=== PATIENT | female | born 1990 | race Two or more races ===

== ENCOUNTER 2019-12-07 19:25 | Inpatient (IN) | payer SELFPAY ==
[~2019-12-07] VITALS: Ht 137.2 cm; Wt 51.6 kg
--- NOTE | 2019-12-07 20:39 | NUR ---
THIS IS A 28Y F THAT COMES IN TONIGHT FOR ABD PAIN IN ALL QUADS WORSE IN THE PERIUMB AREA, PT REPORTS PAIN STARTING YESTERDAY. PT STS SHE JUST STARTED BLEEDING TODAY. PT STS SHE DOES NOT KNOW IF IT HER NORMAL PERIOD OR IF IT IS DIFFERENT. PT DENIES N/V/D AND UNK WHEN HER LAST PERIOD WAS. PT EDUCATED ON NEED FOR URINE SAMPLE BUT STS SHE IS BLEEDING AT THIS TIME, PROVIDER TO BE UPDATED. AND DAUGHTER AT BEDSIDE AT THIS TIME. RUDY DIAZ
[2019-12-07 20:57] LABS: BASOPHILS # (AUTO) 0.04 x10^3/uL (0-0.1); BASOPHILS % (AUTO) 0 % (0-1); EOSINOPHILS # (AUTO) 0.04 x10^3/uL (0-0.4); EOSINOPHILS % (AUTO) 0 % (1-7); LYMPHOCYTES # (AUTO) 1.49 x10^3/uL (1-3.4); LYMPHOCYTES % (AUTO) 13 % (22-44); MD NO; MEAN CORPUSCULAR HEMOGLOBIN 24.7 pg (27.0-34.8); MEAN CORPUSCULAR HGB CONC 33.3 g/dL (32.4-35.8); MEAN PLATELET VOLUME 8.4 fL (7.4-10.4); MONOCYTES # (AUTO) 0.66 x10^3/uL (0.2-0.8); MONOCYTES % (AUTO) 6 % (2-9); NEUTROPHILS # (AUTO) 9.55 x10^3/uL (1.8-6.8); NEUTROPHILS % (AUTO) 81 % (42-75); PLATELET COUNT 404 x10^3/uL (130-400); RED BLOOD COUNT 4.14 x10^6/uL (3.82-5.3); RED CELL DISTRIBUTION WIDTH 15.8 % (9.6-15.2)
[2019-12-07] MEDS ORDERED: ONDANSETRON 2MG/ML, 2ML IVPush ONE (21:00)
[2019-12-07] MEDS ORDERED: SODIUM CHLORIDE 0.9% 1,000ML IVBOLUS ONE (21:00)
[2019-12-07] MEDS ORDERED: SODIUM CHLORIDE FLUSH 10ML SYR IVF ONE (21:00)
[2019-12-07] MEDS ORDERED: ONDANSETRON 2MG/ML, 2ML ONE (21:42)
[2019-12-07 21:46] LABS: ALANINE AMINOTRANSFERASE 61 U/L (12-78); ALBUMIN 3.1 g/dL (3.4-5.0); ANION GAP 10 mmol/L (5-15); CHLORIDE 105 mmol/L (98-107); CREATININE 0.71 mg/dL (0.55-1.02)
[2019-12-07 21:48] LABS: ALKALINE PHOSPHATASE 146 U/L (45-117); BILIRUBIN,TOTAL 0.5 mg/dL (0.2-1.0); TOTAL PROTEIN 7.9 g/dL (6.4-8.2)
--- NOTE | 2019-12-07 21:49 | NUR ---
PIV STARTED, FLUIDS INFUSING, PT MEDICATED PER MAR, STRAIGHT CATH PERFORMED PER ERP. URINE SENT TO LAB. PT RESTING NADN.
[2019-12-07 21:59] LABS: MICROSCOPIC INDICATED
[2019-12-07 22:11] LABS: CULTURE INDICATED? YES
--- NOTE | 2019-12-07 23:20 | NUR ---
REPORT TO PHYSICIAN OBSTETRICIAN. PT READY FOR TRANSPORT
[2019-12-07] MEDS ORDERED: EPINEPHRINE 1 MG/ML, 1ML ONE (23:31)
[2019-12-07] MEDS ORDERED: BUPIVACAINE/PF 0.25% ONE (23:31)
[2019-12-08] MEDS ORDERED: FENTANYL PF 100 MCG/2ML ONE (00:06)
[2019-12-08] MEDS ORDERED: PHENYLEPHRINE 10 MG/ML ONE (00:08)
[2019-12-08] MEDS ORDERED: DEXAMETHASONE 4 MG/ML, 1ML ONE (00:43)
[2019-12-08] MEDS ORDERED: GLYCOPYRROLATE 0.2MG/1ML, 5ML ONE (00:43)
[2019-12-08] MEDS ORDERED: ONDANSETRON 2MG/ML, 2ML ONE (00:43)
[2019-12-08] MEDS ORDERED: SUCCINYLCHOLINE 20 MG/ML, 10ML ONE (00:43)
[2019-12-08] MEDS ORDERED: PROPOFOL 10 MG/ML, 20ML ONE (00:43)
[2019-12-08] MEDS ORDERED: CEFAZOLIN 1,000 MG ONE (00:43)
[2019-12-08] MEDS ORDERED: NEOSTIGMINE 1 MG/ML, 10ML ONE (00:43)
[2019-12-08] MEDS ORDERED: ROCURONIUM 10MG/ML,5ML ONE (00:43)
[2019-12-08] MEDS ORDERED: BUPIVACAINE/PF-EPI 0.25% 1:200K INFIL ONE (00:44)
[2019-12-08] MEDS ORDERED: ACETAMINOPHEN 325 MG TABLET PO PRN (01:00)
[2019-12-08] MEDS ORDERED: OXYcodone 5 MG/5 ML ORAL.SOL UDC PO PRN (01:00)
[2019-12-08] MEDS ORDERED: ALBUTEROL/IPRATROPIUM 2.5MG/0.5MG, 3 ML NPPB PRN (01:00)
[2019-12-08] MEDS ORDERED: FENTANYL PF 100 MCG/2ML IV PRN (01:00)
[2019-12-08] MEDS ORDERED: HYDROmorphone 2 MG/ML, 1ML IVPush PRN (01:00)
[2019-12-08] MEDS ORDERED: PROMETHAZINE 25 MG/ML, 1ML IV PRN (01:00)
[2019-12-08] MEDS ORDERED: MEPERIDINE/PF 25MG/ML,1ML IVPush PRN (01:00)
[2019-12-08] MEDS ORDERED: MIDAZOLAM 1 MG/ML, 2ML IV PRN (01:00)
[2019-12-08] MEDS ORDERED: OXYcodone 5 MG/5 ML ORAL.SOL UDC ONE (01:25)
[2019-12-08] MEDS ORDERED: OXYcodone/APAP 5/325MG TABLET PO PRN (02:30)
[2019-12-08] MEDS ORDERED: IBUPROFEN 600 MG TABLET PO PRN (02:30)
[2019-12-08] MEDS ORDERED: HYDROmorphone 1 MG/ML, 1ML INJ IV PRN (02:30)
[2019-12-08] MEDS ORDERED: LACTATED RINGERS 1,000 ML IV SCH (02:30)
[2019-12-08] MEDS ORDERED: ONDANSETRON 2MG/ML, 2ML IV PRN (02:30)
[2019-12-08] MEDS ORDERED: OXYC-302 PO (03:35)
[2019-12-08] MEDS ORDERED: IBUP-1223 PO (03:36)
[2019-12-08 03:37] VITALS: BP 95/62
[2019-12-08] MEDS ORDERED: DOCU-131 PO (03:37)
[2019-12-08 08:10] VITALS: BP 92/54
[2019-12-08 12:20] VITALS: BP 98/64
== END 2019-12-08 13:01 | disposition home or self-care (01) | DRG 817 ==
LOC: ED 22:46 → EDIP 23:21 → 4NE 12-08 02:08
PROVIDERS: ADMIT Obstetrics & Gynecology; ATTEND Obstetrics & Gynecology
PROC: 10T24ZZ Resection of Products of Conception, Ectopic, Percutaneous Endoscopic Approach (ICD-10-PCS; principal; 2019-12-08)
PROC: 0UB64ZZ Excision of Left Fallopian Tube, Percutaneous Endoscopic Approach (ICD-10-PCS; 2019-12-08)
DX: O00.102 Left tubal pregnancy without intrauterine pregnancy (principal); O08.89 Other complications following an ectopic and molar pregnancy; K66.1 Hemoperitoneum; D64.9 Anemia, unspecified; Z82.49 Family history of ischemic heart disease and other diseases of the circulatory system
CPT/HCPCS: 36415; 76801; 80053; 81001; 83690; 84702; 84703; 85025; 86850; 86900; 87077; 87086; 87186; 88305; 93005; 96360; J0171; J0690; J1100; J2405; J2704; J2710; J3010; J3490; J0330; J2370; J7030